=== PATIENT | male | born 2000 | race American Indian/Alaskan Native ===

== ENCOUNTER 2022-02-03 12:37 | Emergency (ER) | payer MEDICAID ==
[2022-02-03 14:01] LABS: Basophils % (Auto) 0.2 % (0.0-1.8); Eosinophils % (Auto) 0.3 % (0.0-4.3); Hematocrit 47.6 % (35.5-45.6); Hemoglobin 15.8 gm/dl (11.8-15.2); Lymphocytes # (Auto) 0.9 K/mm3 (1.2-5.4); Mean Corpuscular HGB Conc 33 % (32-34); Mean Corpuscular Volume 90 fl (84-94); Monocytes # (Auto) 1.2 K/mm3 (0.0-0.8); Monocytes % (Auto) 9.1 % (0.0-7.3); Platelet Count 213 K/mm3 (140-440); Red Blood Count 5.29 M/mm3 (3.65-5.03)
[2022-02-03 14:15] LABS: Alanine Aminotransferase 12 units/L (7-56); Albumin 4.9 g/dL (3.9-5); BUN/Creatinine Ratio 17; Blood Urea Nitrogen 17 mg/dL (9-20); Calcium 9.9 mg/dL (8.4-10.2); Hemolysis Index 12
--- NOTE | 2022-02-03 15:26 | Cat Scan Report ---
CT ABDOMEN AND PELVIS WITH CONTRAST INDICATION: Abdominal Pain CONTRAST: 100 cc Omnipaque 300 IV COMPARISON: None available. All CT scans at this location are performed using CT dose reduction for ALARA by means of automated e xposure control. FINDINGS: Lung bases are clear. No pneumoperitoneum. Gallbladder and bile ducts normal. No abdominal masses. No urinary or bowel obstruction. No lymphadenopathy. No pelvic mass. Appendix appears within normal limits. The proximal right colon shows moderate stool but no wall thic kening. The mid to distal ascending colon, hepatic flexure, and proximal transverse colon are not wel l distended for evaluation but appear to show wall edema with mild surrounding inflammation, the latt er particularly in the area of the ascending colon. Adjacent paracolic fluid is seen which is not org anized. No extraluminal or intramural gas are noted. A single diverticulum is seen containing dense m aterial. No evidence of perforation or abscess is seen. No obstructive changes noted. No small bowel abnormalities are noted. IMPRESSION: Findings in the right colon as above which most suggest colitis. There is a diverticulum visible in the area of inflammation but the extent of this process appears to be well beyond this sin gle diverticulum more consistent with colitis than diverticulitis. I do not see obvious perforation o r other complication. Follow-up is suggested. Signer Name: Everardo Rudolph MD Signed: 02/03/2022 3:21 PM Workstation Name: [id number]
[2022-02-03 19:55] VITALS: BP 140/81
--- NOTE | 2022-02-03 20:47 | Emergency Department Report ---
ED Abdominal Pain HPI - General Chief Complaint: Abdominal Pain Stated Complaint: POSSIBLE APPENDICITIS Time Seen by Provider: 02/03/22 19:58 Source: patient Mode of arrival: Ambulatory Limitations: No Limitations - History of Present Illness Initial Comments: 21-year-old male with past medical history of asthma reports to the ER after experiencing abdominal pain around 5:00 this morning is in no vomiting no diarrhea. Patient reports eating some [place] food last night that had a odd taste to it. Patient reports eating this food in the past with no problems until last night. Patient was seen in urgent care and was sent to the ER for evaluation of appendicitis due to right lower quadrant pain. Severity scale (0 -10): 0 - Related Data Allergies Allergy/AdvReac Type Severity Reaction Status Date / Time No Known Allergies Allergy Verified 02/03/22 13:02 ED Review of Systems ROS: Stated complaint: POSSIBLE APPENDICITIS Other details as noted in HPI ED Past Medical Hx - Past Medical History Previous Medical History?: Yes Hx Diabetes: No Hx Renal Disease: No Hx Sickle Cell Disease: No Hx Seizures: No Hx Asthma: Yes Hx HIV: No ED Physical Exam - General Limitations: No Limitations General appearance: alert, in no apparent distress - Head Head exam: Present: atraumatic, normocephalic - Eye Eye exam: Present: normal appearance - ENT ENT exam: Present: mucous membranes moist - Neck Neck exam: Present: normal inspection - Respiratory Respiratory exam: Present: normal lung sounds bilaterally. Absent: respiratory distress - Cardiovascular Cardiovascular Exam: Present: regular rate, normal rhythm. Absent: systolic murmur, diastolic murmur, rubs, gallop - GI/Abdominal GI/Abdominal exam: Present: soft, tenderness, normal bowel sounds. Absent: distended, guarding, rebound, diminished bowel sounds, organomegaly - Rectal Rectal exam: Present: deferred - Extremities Exam Extremities exam: Present: normal inspection - Back Exam Back exam: Present: normal inspection - Neurological Exam Neurological exam: Present: alert, oriented X3 - Psychiatric Psychiatric exam: Present: normal affect, normal mood - Skin Skin exam: Present: warm, dry, intact, normal color. Absent: rash ED Course Vital Signs 02/03/22 02/03/22 02/03/22 13:00 13:02 19:54 Temperature 98.7 F 98.0 F Pulse Rate 76 75 Respiratory 16 18 Rate Blood Pressure 148/81 140/81 [Left] O2 Sat by Pulse 100 Oximetry 02/03/22 21:19 Temperature Pulse Rate Respiratory Rate Blood Pressure [Left] O2 Sat by Pulse 100 Oximetry ED Medical Decision Making - Lab Data Result diagrams: 02/03/22 13:10 02/03/22 13:10 - Radiology Data [facility] [address] [place] [address] Cat Scan Report Signed Patient: FAVIAN GUAN JR MR#: [id number] : 2000 Acct:[id number] Age/Sex: 21 / M ADM Date: 02/03/22 Loc: ED Attending Dr: Ordering Physician: QUINTON HARPER MD Date of Service: 02/03/22 Procedure(s): CT abdomen pelvis w con Accession Number(s): [id number] cc: QUINTON HARPER MD CT ABDOMEN AND PELVIS WITH CONTRAST INDICATION: Abdominal Pain CONTRAST: 100 cc Omnipaque 300 IV COMPARISON: None available. All CT scans at this location are performed using CT dose reduction for ALARA by means of automated exposure control. FINDINGS: Lung bases are clear. No pneumoperitoneum. Gallbladder and bile ducts normal. No abdominal masses. No urinary or bowel obstruction. No lymphadenopathy. No pelvic mass. Appendix appears within normal limits. The proximal right colon shows moderate stool but no wall thickening. The mid to distal ascending colon, hepatic flexure, and proximal transverse colon are not well distended for evaluation but appear to show wall edema with mild surrounding inflammation, the latter particularly in the area of the ascending colon. Adjacent paracolic fluid is seen which is not organized. No extraluminal or intramural gas are noted. A single diverticulum is seen containing dense material. No evidence of perforation or abscess is seen. No obstructive changes noted. No small bowel abnormalities are noted. IMPRESSION: Findings in the right colon as above which most suggest colitis. There is a diverticulum visible in the area of inflammation but the extent of this process appears to be well beyond this single diverticulum more consistent with colitis than diverticulitis. I do not see obvious perforation or other complication. Follow-up is suggested. Signer Name: Everardo Rudolph MD Signed: 02/03/2022 3:21 PM Workstation Name: [id number] Transcribed By: GJ Dictated By: Everardo Rudolph MD Electronically Authenticated By: Everardo Rudolph MD Signed Date/Time: 02/03/22 152 DD/ 151 TD/TT: - Medical Decision Making 21-year-old male with past medical history of asthma reports to the ER after experiencing abdominal pain around 5:00 this morning is in no vomiting no diarrhea. Patient reports eating some [place] food last night that had a odd taste to it. Patient reports eating this food in the past with no problems u ntil last night. Patient was seen in urgent care and was sent to the ER for evaluation of appendicitis due to right lower quadrant pain. No acute abdominal signs noted on physical exam. CT is positive for colitis. CBCWBC slightly elevated 13.5 CMP with no acute process. Lipase negative Patient reports a decrease in pain is able to tolerate fluids and food. Patient stable for discharge. Will follow-up with his PCP as needed. Patient agrees with plan of care and verbalizes understanding. Vital Signs 02/03/22 02/03/22 02/03/22 13:00 13:02 19:54 Temperature 98.7 F 98.0 F Pulse Rate 76 75 Respiratory 16 18 Rate Blood Pressure 148/81 140/81 [Left] O2 Sat by Pulse 100 Oximetry 02/03/22 21:19 Temperature Pulse Rate Respiratory Rate Blood Pressure [Left] O2 Sat by Pulse 100 Oximetry Lab Results 02/03/22 02/03/22 02/03/22 Range/Units 13:10 13:10 13:10 WBC 13.5 H (4.5-11.0) K/mm3 RBC 5.29 H (3.65-5.03) M/mm3 Hgb 15.8 H (11.8-15.2) gm/dl Hct 47.6 H (35.5-45.6) % MCV 90 (84-94) fl MCH 30 (28-32) pg MCHC 33 (32-34) % RDW 13.0 L (13.2-15.2) % Plt Count 213 (140-440) K/mm3 Lymph % (Auto) 7.0 L (13.4-35.0) % Keith % (Auto) 9.1 H (0.0-7.3) % Eos % (Auto) 0.3 (0.0-4.3) % Baso % (Auto) 0.2 (0.0-1.8) % Lymph # (Auto) 0.9 L (1.2-5.4) K/mm3 Keith # (Auto) 1.2 H (0.0-0.8) K/mm3 Eos # (Auto) 0.0 (0.0-0.4) K/mm3 Baso # (Auto) 0.0 (0.0-0.1) K/mm3 Seg Neutrophils % 83.4 H (40.0-70.0) % Seg Neutrophils # 11.2 H (1.8-7.7) K/mm3 Sodium 140 (137-145) mmol/L Potassium 4.1 (3.6-5.0) mmol/L Chloride 100.5 (98-107) mmol/L Carbon Dioxide 28 (22-30) mmol/L Anion Gap 16 mmol/L BUN 17 (9-20) mg/dL Creatinine 1.0 (0.8-1.3) mg/dL Estimated GFR > 60 ml/min BUN/Creatinine Ratio 17 % Glucose 101 H (75-100) mg/dL Calcium 9.9 (8.4-10.2) mg/dL Total Bilirubin 1.30 H (0.1-1.2) mg/dL AST 16 (5-40) units/L ALT 12 (7-56) units/L Alkaline Phosphatase 62 (35-129) units/L Total Protein 8.2 (6.3-8.2) g/dL Albumin 4.9 (3.9-5) g/dL Albumin/Globulin Ratio 1.5 % Lipase 20 (13-60) units/L Critical care attestation.: If time is entered above; I have spent that time in minutes in the direct care of this critically ill patient, excluding procedure time. ED Disposition Clinical Impression: Colitis Abdominal pain Qualifiers: Abdominal location: right lower quadrant Qualified Code(s): R10.31 - Right lower quadrant pain Disposition: 01 HOME / SELF CARE / HOMELESS Is pt being admited?: No Condition: Stable Instructions: Viral Gastroenteritis, Adult, Abdominal Pain, Adult, [id number] Referrals: JAMAL DUBOSE MD [Primary Care Provider] - 3-5 Days Time of Disposition: 20:47
== END 2022-02-03 21:24 | disposition home or self-care (01) ==
LOC: ED 12:37
DX: K52.9 Noninfective gastroenteritis and colitis, unspecified (principal); R10.9 Unspecified abdominal pain
CPT/HCPCS: 36415; 74177; 80053; 83690; 85025; 99284; Q9967